=== PATIENT | female | born 1975 | race Caucasian/White ===

== ENCOUNTER → 2017-01-07 | Outpatient (CLI) | payer OTHER | LOC: BMCIMAGING 13:56 | PROVIDERS: ATTEND Podiatrist Foot & Ankle Surgery | DX: M77.31 Calcaneal spur, right foot (principal) ==

== ENCOUNTER → 2017-01-29 | Outpatient (CLI) | payer OTHER ==
[~2017-01-29] MED LIST: LIDOCAINE 1% 300 MG/30 ML SDV ONE
== END ==
LOC: FIMAGING 07:44
PROVIDERS: ATTEND Podiatrist Foot & Ankle Surgery
PROC: 3E023GC Introduction of Other Therapeutic Substance into Muscle, Percutaneous Approach (ICD-10-PCS; principal; 2017-01-29)
DX: M79.671 Pain in right foot (principal)